=== PATIENT | male | born 1980 | race Asian ===

== ENCOUNTER 2018-09-07 21:20 | Emergency (ER) | payer BC, SELFPAY ==
[~2018-09-07] VITALS: Ht 165.1 cm; Wt 81.8 kg
[~2018-09-07 21:20] MED LIST: ALPR0.5T8 PO
[2018-09-07] MEDS ORDERED: IBUPROFEN 800 MG TABLET PO ONE (23:30)
[2018-09-07 23:46] LABS: RAPID GROUP A STREP NEGATIVE (NEGATIVE)
[2018-09-07 23:50] VITALS: BP 127/84
[2018-09-07 23:59] LABS: INFLUENZA TYPE A POSITIVE FOR TYPE A (NEGATIVE)
[2018-09-08] LABS: INFLUENZA TYPE B NEGATIVE FOR TYPE B (NEGATIVE)
== END 2018-09-08 00:05 | disposition home or self-care (01) ==
LOC: EMS 21:22
DX: B34.9 Viral infection, unspecified (principal); F41.9 Anxiety disorder, unspecified
CPT/HCPCS: 87430; 87804

== ENCOUNTER 2021-02-10 01:46 | Emergency (ER) | payer BC ==
[~2021-02-10] VITALS: Ht 167.6 cm; Wt 81.8 kg
[2021-02-10 01:50] VITALS: BP 157/87
[2021-02-10 02:40] LABS: BASOPHILS % (AUTO) 0.7 % (0.0-2.0); EOSINOPHILS % (AUTO) 6.7 % (1.0-6.0); HEMATOCRIT 39.8 % (41-53); HEMOGLOBIN 13.3 g/dL (13.5-17.5); LYMPHOCYTES # (AUTO) 2.2 K/uL (1.0-4.8); LYMPHOCYTES % (AUTO) 28.9 % (22.0-44.0); MEAN CORPUSCULAR HEMOGLOBIN 28.1 pg (26.0-34.0); MEAN CORPUSCULAR HGB CONC 33.5 G/dL (31.0-37.0); MEAN CORPUSCULAR VOLUME 84 fL (80-100); MONOCYTES # (AUTO) 0.6 K/uL (0.1-1.0); MONOCYTES % (AUTO) 8.2 % (2.0-9.0); NEUTROPHILS # (AUTO) 4.2 K/uL (1.8-7.7); NEUTROPHILS % (AUTO) 55.5 % (40.0-70.0); PLATELET COUNT (AUTO) 369 K/uL (150-450); RED BLOOD CELL COUNT(AUTO) 4.74 MIL/uL (4.50-5.90)
[2021-02-10 02:53] LABS: PROTHROMBIN TIME 10.4 SEC (9.4-11.6)
== END 2021-02-10 03:17 | disposition home or self-care (01) ==
LOC: EMS 01:48
DX: S00.512A Abrasion of oral cavity, initial encounter (principal); F41.9 Anxiety disorder, unspecified; X58.XXXA Exposure to other specified factors, initial encounter; Y93.89 Activity, other specified; Y92.89 Other specified places as the place of occurrence of the external cause; Y99.8 Other external cause status
CPT/HCPCS: 85025; 85610; 99283